=== PATIENT | male | born 1950 | race Caucasian/White ===

== ENCOUNTER → 2017-08-20 | Outpatient (CLI) | payer OTHER ==
[~2017-08-20] MED LIST: MULT-506 PO; TAMS0.4C38 PO; TRAM-10 PO; TUMERIC PO
--- NOTE | 2017-08-21 06:32 | SPLIT NIGHT TECHNICIAN REPORT ---
[facility] Split Night Polysomnogram - Abstract Manager Report Study date: 08/20/2017 Referring Physician: HERNAN AJCQUES PA-C Name: BEST PETERSON Abstract Manager: JULY Aviles. Date of : 1950 Height: 67 years, Height Sex: Male Weight: Age: 67 BMI: Medications: TEMAZEPAM 15 MG, TRAMADOL HCL 50 MG Patient History PATIENT HAS HISTORY OF SNORING, DAYTIME SLEEPINESS AND TROUBLE STAYING AWAKE DURING THE DAY. ALSO, HAS HISTORY OF NIGHTMARES AND INSOMNIA. PATIENT HAD AN INCONCLUSIVE HOME STUDY IN JUNE OF 2017. HE IS HERE TODAY FOR A SPLIT-STUDY. ESS = 7 RM 7 Parameters Monitored NPSG: E1-M2, E2-M1, Fp1-M2, Fp2-M1, F3-M2, F4-M2, F4-M1, C3-M2, C4-M2, C4-M1, O1-M2, O2-M2, O2-M1, T3-M2, T4-M1, P3-M2, P4-M1, CHIN1, CHIN2, HR, EKG, Legs, PFLOW, SNOR, FLOW, CFLOW, Tidal Volume, THOR, ABDO, SpO2, PLTH, CPRESS, ETCO2 Wave, ETCO2, pH SLEEP SUMMARY DATA DIAGNOSTIC TREATMENT Lights Out: 10:08:11 PM 12:44:11 AM Lights On: 12:31:11 AM 5:58:11 AM Total Recording Time (TRT): 143.5 min. 305.0 min. Total Sleep Time (TST): 131.5 min. 199.5 min. NREM Time: 104.5 min. 182.5 min. REM Time: 27.0 min. 17.0 min. Sleep Period Time (SPT): 136.0 min. 305.0 min. Sleep Efficiency (SE): 92 % 66 % Sleep Latency: 7.0 min. 9.0 min. Arousal Index: 9.6 17.7 PAP Treatment Levels: 4, 5, 6, 8/4, 9/5, 10/6, 11/7, 12/7, 13/7 * Optimal Pressure(s) SLEEP STAGING DATA DIAGNOSTIC TREATMENT Duration (min) TST % Duration (min) TST % Stage Wake: 11.5 min. -- 105.0 min. -- WASO: 4.5 min. -- 105.5 min. -- NREM: 104.5 min. 79 % 182.5 min. 91 % Stage N1: 6.5 min. 5 % 39.0 min. 20 % Stage N2: 75.0 min. 57 % 143.5 min. 72 % Stage N3: 23.0 min. 17 % 0.0 min. 0 % REM: 27.0 min. 21 % 17.0 min. 9 % POSITIONAL DATA Event Count Index Event Count Index Supine: 101 46.1 101 37.8 Supine NREM: 78 44.8 96 37.7 Supine REM: 23 51 5 40 Non-Supine: N/A N/A 10 15.3 Non-Supine NREM: N/A N/A 9 18.1 Non-Supine REM: N/A N/A 1 6.3 AROUSAL SUMMARY DATA: Event Count Index Event Count Index Apnea Arousals: 4 20.5 7 19.8 Hypopnea Arousals: 4 1.8 1 0.3 Snore Arousals: 3 1.4 8 2.4 PLM Arousals: 0 0.0 0 0.0 Non-Specific Arousals: 7 3.2 42 12.6 Total Arousals: 21 9.6 59 17.7 MYOCLONUS (PLM) Event Count Index Event Count Index PLM: 0 0.0 4 1.2 PLM AROUSAL: 0 0.0 0 0.0 PLM W/O AROUSAL 0 0.0 4 1.2 PLM W/RESP EVENT 0 0.0 0 0.0 MYOCLONUS (PLM) Event Count Index Event Count Index LM: 3 9.1 11 3.3 LM AROUSAL: 3 1.4 1 0.3 LM W/O AROUSAL LM W/RESP EVENT LM NON SPECIFIC 12 5.5 11 3.3 HEART RATE DATA DIAGNOSTIC TREATMENT Sleep (bpm): 65 62 REM (bpm): 90 94 NREM (bpm): 93 94 Tachycardia Count: 0 0 Tachycardia Duration: 0.00 0 Bradycardia Count: 0 0 Bradycardia Duration: 0.00 0 DIAGNOSTIC PORTION TREATMENT PORTION RESPIRATORY DATA Event Count Index Event Count Index AHI: -- 46.1 -- 33.4 RDI: -- 46.1 -- 33 Obstructive Apnea: 7 3.2 5 1.5 Central Apnea: 38 17.3 59 17.7 Mixed Apnea: 0 0.0 2 0.6 Hypopnea: 56 25.6 45 13.5 RERA: 0 0.0 0 0.0 Total Apneas: 45 20.5 66 19.8 RESPIRATORY DATA REM NREM SLEEP REM NREM SLEEP Supine Position: Obstructive Apneas: 6 1 7 4 1 5 Central Apneas: 0 38 38 0 51 51 Mixed Apneas: 0 0 0 0 2 2 Hypopneas: 17 39 56 1 42 43 RERA 0 0 0 0 0 0 Total Supine Events: 23 78 101 5 96 101 Supine AHI: 51 44.8 46.1 40 37.7 37.8 Supine RDI: 51.1 44.8 46.1 40.0 37.7 37.8 REM NREM SLEEP REM NREM SLEEP Non-Supine Position: Obstructive Apneas: N/A N/A N/A 0 0 0 Central Apneas: N/A N/A N/A 0 8 8 Mixed Apneas: N/A N/A N/A 0 0 0 Hypopneas: N/A N/A N/A 1 1 2 RERA N/A N/A N/A 0 0 0 Total Supine Events: N/A N/A N/A 1 9 10 Supine AHI: N/A N/A N/A 6.3 18.1 15.3 Supine RDI: N/A N/A N/A 6.3 18.1 15.3 OXYGEN DESTAURATION DATA: Event Count Index Event Count Index REM Desaturations: 24 53.3 6 21.2 NREM Desaturations: 76 43.6 97 31.9 SNORE DATA DIAGNOSTIC TREATMENT Snore Time: 3.3 12:53:11 AM Snore TST%: 1 3 Snore Arousal Count: 3 8 Snore Arousal Index: 1.4 2.4 Desaturation Event Summary: Minimum %SpO2 Event Count Mean/Min/Max Duration(sec.) Desaturation Index % Time In Bed > 90 203 33.5 / 13.0 / 76.1 29.9 92.9 86 - 90 1 28.9 / 28.9 / 28.9 2.3 6.0 81 - 85 0 N/A 0.0 0.9 76 - 80 0 N/A 0.0 0.2 71 - 75 0 N/A 0.0 0.0 66 - 70 0 N/A 0.0 0.0 61 - 65 0 N/A 0.0 0.0 56 - 60 0 N/A 0.0 0.0 51 - 55 0 N/A 0.0 0.0 < 50 0 N/A 0.0 0.0 OXYGEN SATURATION DATA DIAGNOSTIC TREATMENT SpO2 Mean Sleep: 93 % 94 % SpO2 Mean REM: 90 % 94 % SpO2 Mean NREM: 93 % 94 % SpO2 Minimum Sleep: 76 % 85 % SpO2 Minimum REM: 76 % 87 % SpO2 Minimum NREM: 78 % 85 % Time Below 90% (TST): 12.4 3.6 Time Below 88% (TST): 8.0 0.8 Total REM NREM Awake <50% 0.0 min. 0.0 min. 0.0 min. 0.0 min. 51 - 60% 0.0 min. 0.0 min. 0.0 min. 0.0 min. 61 - 70% 0.0 min. 0.0 min. 0.0 min. 0.0 min. 71 - 80% 1.0 min. 0.5 min. 0.2 min. 0.3 min. 81 - 90% 30.0 min. 13.6 min. 14.7 min. 1.6 min. 91 - 100% 407.5 min. 29.9 min. 272.1 min. 105.6 min. Average 94 92 94 95 Minimum SpO2 76 76 78 76 Desaturation Event Index 27.4 40.9 36.2 0.5 # Desat. Events below 89% 32 23 9 0 Time(%) with Saturation below 89% 2.7 2.1 0.5 0.1 Time(min.) with Saturation below 89% 11.9 9.2 2.2 0.6 Recording Abstract Manager Comments: Mr. Peterson slept in the supine and left positions. PVC's noted. Leg movements noted. No bruxism noted. Snoring was noted and scored as a 4 on a scale of 1 through 5. (0=no snoring, 5=snoring loud enough to be heard through a closed door or down the [address]) At 12:31 am Mr. Peterson has met specific Split-Night criteria during the diagnostic portion of this study. CPAP was initiated at +4 CMH2O and up-titrated to a level of +6 CMH2O, at this time I switched to BIPAP due to continued central apneas. I increased up to 10/6 and added a rate of 8. I increased the rate to 10 and up titrated to 13/7 due to apneas and hypops. A [employer] size medium Simplus mask was used during titration Mr. Peterson awoke to use the restroom 2 times during the night. Mr. Peterson stated I did not sleep as well as I do when I am in my own bed. I tried 3 different full face masks on the patient and all of them had poor leaks. Likely, due to the patient's bell. The final report will be interpreted and signed by a sleep physician. The completed physician report will then be placed in the patient medical record. Therapy Event: Therapy (cm H20) 0 4 5 6 8/03/20 13 Total Time at Pressure (min.) 143.0 22.6 11.1 14.2 14.8 10.5 120.6 7.0 15.8 87.8 TST at Pressure (min.) 131.5 11.6 11.1 14.2 13.8 10.5 69.1 7.0 15.8 46.3 # Periods 1 1 1 1 1 1 1 1 1 1 Sleep Onset (min.) 7.0 9.0 0.0 0.0 0.0 0.0 0.0 0.0 0.0 0.0 REM Onset (min.) 56.5 N/A N/A N/A N/A N/A 56.1 N/A N/A 6.8 Sleep Efficiency % 92 51 100 100 93 100 57 100 100 52 Wakefulness (%) 8.0 48.6 0.0 0.0 6.7 0.0 42.7 0.0 0.0 47.3 Wakefulness (min.) 11.5 11.0 0.0 0.0 1.0 0.0 51.5 0.0 0.0 41.5 NREM 1 (%) 4.5 30.9 0.0 3.5 3.4 0.0 17.0 0.0 0.0 12.0 NREM 1 (min.) 6.5 7.0 0.0 0.5 0.5 0.0 20.5 0.0 0.0 10.5 NREM 2 (%) 52.4 20.5 100.0 96.5 89.9 100.0 32.4 100.0 100.0 32.2 NREM 2 (min.) 75.0 4.6 11.1 13.7 13.3 10.5 39.1 7.0 15.8 28.3 NREM 3 (%) 16.1 0.0 0.0 0.0 0.0 0.0 0.0 0.0 0.0 0.0 NREM 3 (min.) 23.0 0.0 0.0 0.0 0.0 0.0 0.0 0.0 0.0 0.0 REM (%) 18.9 0.0 0.0 0.0 0.0 0.0 7.9 0.0 0.0 8.5 REM (min.) 27.0 0.0 0.0 0.0 0.0 0.0 9.5 0.0 0.0 7.5 # Arousals 21 8 0 1 3 0 28 0 0 19 Arousal Index 9.6 41.2 0.0 4.2 13.0 0.0 24.3 0.0 0.0 24.6 # Snore 120 0 6 15 14 14 11 4 27 21 Snore Index 54.8 0.0 32.4 63.2 60.7 79.9 9.5 34.4 102.8 27.2 AHI 46.1 30.9 70.1 63.2 56.4 57.1 25.2 68.9 30.5 11.7 AHI Supine 46.1 30.9 70.1 63.2 56.4 57.1 36.9 68.9 30.5 11.9 AHI Non-Supine N/A N/A N/A N/A N/A N/A 15.7 N/A N/A 0.0 NREM AHI 44.8 30.9 70.1 63.2 56.4 57.1 28.2 68.9 30.5 6.2 REM AHI 51.1 N/A N/A N/A N/A N/A 6.3 N/A N/A 40.0 RDI 46.1 30.9 70.1 63.2 56.4 57.1 25.2 68.9 30.5 11.7 # Obstructive 7 0 0 0 1 0 0 0 0 4 # Central Ap 38 6 12 14 8 6 13 0 0 0 # Mixed 0 0 1 1 0 0 0 0 0 0 # Hypopneas 56 0 0 0 4 4 16 8 8 5 RERAS 0 0 0 0 0 0 0 0 0 0 Total Respiratory Events 101 6 13 15 13 10 29 8 8 9 Time Below SpO2 89.00% (min.) 9.7 0.1 0.0 0.0 0.0 0.0 1.1 0.0 0.0 0.5 Mean NREM SpO2 (%) 93 93 94 94 94 94 94 94 94 94 Mean REM SpO2 (%) 90 N/A N/A N/A N/A N/A 94 N/A N/A 93 Mean Sleep SpO2 (%) 93 93 94 94 94 94 94 94 94 94 Min NREM SpO2 (%) 78 88 89 90 90 90 85 91 90 91 Min REM SpO2 (%) 76 N/A N/A N/A N/A N/A 90 N/A N/A 87 Position Supine (min.) 131.5 11.6 11.1 14.2 13.8 10.5 30.9 7.0 15.8 45.3 Position Non-supine (min.) 0.0 0.0 0.0 0.0 0.0 0.0 38.3 0.0 0.0 1.0 LM Index Sleep 9.1 0.0 5.4 4.2 0.0 34.2 3.5 8.6 0.0 2.6 LM Index NREM 9.2 0.0 5.4 4.2 0.0 34.2 2.0 8.6 0.0 1.5 LM Index REM 8.9 N/A N/A N/A N/A N/A 12.6 N/A N/A 8.0 Mean Heart Rate (bpm) 65 61 61 61 61 61 63 61 62 62 Min Heart Rate (bpm) 38 48 54 42 46 53 44 54 55 45
--- NOTE | 2017-08-22 12:42 | POLYSOMNOGRAPH REPORT ---
CLINICAL DATA: A 67-year-old male referred by Rebecca Young PA-C for a sleep study. He has a history of snoring, daytime sleepiness, and trouble staying awake during the day. He also has nightmares and insomnia. He had a non-diagnostic home study performed in June 2017. SLEEP ARCHITECTURE: For the diagnostic portion of the study, sleep period time was 136 minutes. Total sleep time was 131.5 minutes divided between 104.5 minutes of non-REM sleep and 27 minutes of REM sleep. Sleep latency was 7 minutes. Sleep efficiency was 92%. Sleep consisted of stage N1 5%, stage N2 57%, stage N3 17%, and REM 21%. For the treatment portion of the study, sleep period time was 305 minutes. Total sleep time was 199.5 minutes divided between 182.5 minutes of non-REM sleep and 17 minutes of REM sleep. Sleep latency was 9 minutes. Sleep efficiency was 66%. Sleep consisted of stage N1 20%, stage N2 72%, and REM 9%. AROUSAL DATA: Prior to treatment, 21 arousals were recorded for an index of 9.6 per hour. During treatment, 59 arousals were recorded for an index of 17.7 per hour. PLM DATA: Prior to treatment, 12 limb movements during sleep were noted for an index of 5.5 per hour. During treatment, 12 limb movements were noted for an index of 3.3 per hour. EKG: Heart rates ranged from 62-94 beats per minute. PVCs were noted. RESPIRATORY DATA: Severe sleep apnea was documented prior to treatment. The diagnostic AHI was 46.1. There were 7 obstructive and 38 central apneic episodes. There were 56 hypopneic episodes. The average AHI during treatment was 33.4. There were 5 obstructive, 59 central, and 2 mixed apneic episodes. There were 45 hypopneic episodes. OXIMETRY DATA: Nocturnal hypoxemia was seen. Oxygen arabella was 76% during non-REM sleep. The mean saturation for the treatment was 94%. HOUSE PAINTER'S COMMENTS AND TREATMENT SUMMARY: The patient slept in the left and supine positions. Snoring was severe, rated 4 on a scale of 1-5. At 12:31 a.m., the patient met split night criteria. He used a [employer] and [facility] size medium Simplus mask. He was started on CPAP and was only taken up to 6 cm water pressure. Because of central apneic episodes, he was switched to BiPAP with a backup rate. He was titrated up to his final pressure setting of BiPAP 13/7 with a backup rate of 10 breaths per minute. At his final pressure setting, he slept for 46.3 minutes with an AHI of 11.7. IMPRESSION: Severe sleep apnea/hypopnea with nocturnal hypoxemia with a diagnostic AHI of 46.1, improved on BiPAP 13/7 with a backup rate of 10. The patient used a [employer] medium mask. However, he did not have complete elimination of apneic episodes with the highest level of BiPAP reached. RECOMMENDATIONS: The patient could be tried on BiPAP at the above listed settings with a download compliance and effectiveness data after 4-6 weeks. Sleep medicine consultation may be of benefit. He may need a complete BiPAP titration study at some point if he does not respond to the above noted treatment. Clinical correlation is needed. YVONNE
== END | disposition home or self-care (01) ==
LOC: C.NEUR 21:00
PROVIDERS: ATTEND Physician Assistant
DX: G47.33 Obstructive sleep apnea (adult) (pediatric) (principal); G47.36 Sleep related hypoventilation in conditions classified elsewhere